=== PATIENT | male | born 1970 | race Two or more races ===

== ENCOUNTER 2024-10-11 05:35 | Day surgery (SDC) | payer MEDICAID, SELFPAY ==
--- NOTE | 2024-10-08 07:00 | EKG_ITS ---
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1970 Requested By: Christian Verduzco Order Number: [id number] Reading MD: Christian Verduzco Measurements Intervals [place] Rate: 49 P: 43 DE: 226 QRS: -21 QRSD: 104 T: 32 QT: 410 QTc: 372 Interpretive Statements SINUS BRADYCARDIA WITH FIRST DEGREE AV BLOCK LOW QRS VOLTAGE IN PRECORDIAL LEADS [QRS DEFLECTION < 1.0 mV IN CHEST LEADS] INCOMPLETE RIGHT BUNDLE BRANCH BLOCK [90+ ms QRS DURATION, TERMINAL R IN V1/V2, 40+ ms S IN I/aVL/V4/V5/V6] POSSIBLE ANTERIOR MYOCARDIAL INFARCTION , OF INDETERMINATE AGE [30 ms Q WAVE IN V3/V4, OR R < 0.2 mV IN V4] No previous ECG available for comparison /[id number]/S0/[id number].pdf
[2024-10-08 08:24] VITALS: BMI 35.2
[2024-10-08 09:12] LABS: Collection Type, Urine Clean Catch; Squamous Epithelial Cell,Urine 0 /hpf (0-5)
[2024-10-08 09:57] LABS: Basophils % (Auto) 1 % (0-2.5); Eosinophils # (Auto) 0.2 Thou/mm3 (0.0-0.5); Eosinophils % (Auto) 3 % (0-10); Hematocrit 43.1 % (41.0-53.0); Hemoglobin 14.5 g/dL (13.5-16.0); Immature Granulocytes % (Auto) 0 % (0-0); Immature Granulocytes Auto 0.01 Thou/mm3 (0.00-0.00); Lymphocytes # (Auto) 2.2 Thou/mm3 (1.0-4.8); Lymphocytes % (Auto) 29 % (10-50); Mean Corpuscular HGB Conc 33.6 g/dl (31.0-37.0); Mean Corpuscular Hemoglobin 31.5 pg (25.0-35.0); Mean Corpuscular Volume 94 fL (80-100); Monocytes # (Auto) 0.6 Thou/mm3 (0.0-0.8); Monocytes % (Auto) 8 % (0-12); Neutrophils # (Auto) 4.5 Thou/mm3 (1.8-7.7); Neutrophils % (Auto) 60 % (37-80); Nucleated Red Blood Cell % 0 /100 WBC (0); Platelet Count 252 Thou/mm3 (140-440); RDW Standard Deviation 45.8 fL (35.1-43.9); White Blood Count 7.5 Thou/mm3 (3.8-10.6)
[2024-10-08 10:01] LABS: Bilirubin,Urine Negative (Negative); Blood,Urine Negative (Negative); Clarity,Urine Clear (Clear/Hazy); Color,Urine Yellow (Lt Yel-Yel); Glucose, Urine Negative (Negative); Ketones,Urine Negative (Negative); Leukocyte Esterase,Urine Negative (Negative); Nitrite,Urine Negative (Negative); PH,Urine 7.5 (5.0-7.0); Protein,Urine Trace (Neg - Trace); RBC,Urine 1 /hpf (0-3); Specific Gravity,Urine 1.027 (1.001-1.035); Urobilinogen,Urine Negative mg/dL (0.0-1.0); WBC,Urine < 1 /hpf (0-5)
[2024-10-08 10:10] LABS: Alanine Aminotransferase 18 U/L (10-49); Albumin, Serum 4.4 gm/dL (3.5-5.0); Albumin/Globulin Ratio 1.5 (1.2-2.2); Alkaline Phosphatase 88 U/L (46-116); Anion Gap 6 (7-16); Aspartate Amino Transferase 16 U/L (0-34); BUN/Creatinine Ratio 17 Ratio (12-20); Bilirubin,Total 0.9 mg/dL (0.3-1.2); Blood Urea Nitrogen 15 mg/dL (9-23); Calcium 9.2 mg/dL (8.3-10.6); Calcium (Corrected) 9.2 mg/dL (8.5-10.1); Carbon Dioxide 27.7 mMol/L (20.0-31.0); Chloride 106 mMol/L (98-107); Creatinine (Component) 0.9 mg/dL (0.6-1.3); Estimated Creatinine Clearance 121.5 mL/min (>60); Globulin 2.9 gm/dL (2.3-3.5); Glucose 96 mg/dL (74-106); Osmolality,Calculated 280 (275-295); Potassium 4.1 mMol/L (3.4-5.1); Sodium 140 mMol/L (136-145); Total Protein 7.3 gm/dL (5.7-8.2); eGFR > 60 See Note
[2024-10-11] VITALS (8 sets, daily range): BP systolic 95–116; BP diastolic 61–73; PULSE 47–63; RESP 14–20; TEMP 36.2–36.4; O2SAT 95–99; BMI 36.1
--- NOTE | 2024-10-11 09:28 | SUR.PHASEI ---
0928: Pt. wakes to name then drifts back to sleep, vitals stable, breathing unlabored, no complaint of pain or nausea, dressing to ABD CDI, no active bleed noted, report received from Shaji CARTER and MD Guadalupe.
[2024-10-11] MEDS: fentaNYL CIT INJ 50 mCg/ML AMP 2ML 25 MCG IV ×2 (09:39→10:09)
--- NOTE | 2024-10-11 09:48 | ESOP_ITS ---
Date of Procedure 10/11/24 Pre Op Diagnosis Incarcerated large umbilical hernia Post Op Diagnosis Same. Procedure Repair of incarcerated 11 cm diameter umbilical hernia with partial omentectomy. On 10/11/2024 Findings There was a large incarcerated umbilical hernia that could not be reduced. The size measured about 11 cm. The omentum was adherent to the sac and was incarcerated. This required omentectomy in order to reduce the hernia. There were no other findings. Procedure Description Patient was examined in the preop area. Site and site were marked. Procedure was discussed with the patient in detail. The risk benefits alternatives were discussed with the patient and informed consent was obtained. The risks include bleeding infection recurrence of the hernia and anesthesia related risks. The patient was brought to the operating room and placed on the operating table in supine position. General anesthesia was administered in a satisfactory manner. IV antibiotics were given to the patient. Local anesthesia 0.25% Marcaine was used as an adjunct. Curvilinear vertical circumumbilical incision is made. This was deepened through the layers of skin subcutaneous tissue. The hernia sac was identified and was dissected around the umbilicus. Hernia sac was incised circumferentially, and the contents of the hernia sac were identified. There was omentum in the hernia sac, and this was adherent with the hernia sac and it is scarred down. Portion of the omentum was resected by suture ligation technique with resection of the scarred down omentum. Rest of the omentum was reduced. Hernia sac was excised as specimen. The fascia is cleaned and then the defect is defined. This measured about 11 cm. I examined the fascia from the peritoneal side and there are no adhesions of the bowel or omentum. The defect measured 11 cm. It came together nicely so I decided to repair that with interrupted 0 Ethibond [id number]-td-[id number] stitches. This repair was closed the defect horizontally. Multiple pqbpvy-hf-rgttj stitches are taken to complete the repair. Hemostasis was achieved and the defect was checked again and there is no fascial defect anymore. The operative field is thoroughly irrigated with saline solution. The hernia sac toward the umbilical skin is trimmed. Umbilical skin is attached to the fascia with interrupted 3-0 Vicryl stitches so as to avoid floating umbilicus. After that subcutaneous tissue was approximated by 3-0 Vicryl and skin by four 4-0 Monocryl subcuticular stitches. Steri-Strips are applied. Sterile dressing is applied. Patient tolerated the procedure very well. Complications none. Anesthesia GETA Drains None. Implants None. Pathology / specimen Other (Omentum and umbilical hernia sac.) Estimated Blood Loss 5 Condition Stable Disposition PACU Surgeon Christian Verduzco MD Surgical Staff Operation Date: 10/11/24 07:30 Case Staff Anesthesiologist: Andriy Guadalupe RN First Assistant: Ronda Ramos RN order builder traveler Angelia surgical instruments inspector with a surgical technology student
[2024-10-11] MEDS: KETOROLAC INJ 30 MG/ML VIAL IVP (09:54)
--- NOTE | 2024-10-11 10:35 | SUR.PHASEII ---
1035: Pt. AAOx4, vitals stable, breathing unlabored, no complaint of pain or nausea, dressing to ABD CDI, no active bleed noted, pt. tolerated sips of water well, pt. ambulated to wheelchair with steady gait and no assist, no complications. Gave discharge instructions to the pt. and his ride using wrapping machine helper both verbalized understanding and had no further questions. Pt. left with all personal belongings.
== END 2024-10-11 10:35 | disposition home or self-care (01) ==
PROVIDERS: PCP Internal Medicine; Referring Provider Specialist; Visit Provider Specialist
PROC: (CPT 49596; principal; 2024-10-11 07:30)
DX: K42.0 Umbilical hernia with obstruction, without gangrene (principal)
CPT/HCPCS: 49596; 36415; 80053; 81001; 85025; 85610; 85730; 93005; A4217; A4649; J0131; J0461; J0690; J1100; J1580; J1885; J2250; J2405; J2704; J3010; J3490; J7030; A9270